=== PATIENT | male | born 1995 | race American Indian/Alaskan Native ===

== ENCOUNTER 2019-06-11 15:44 | Emergency (ER) | payer OTHER ==
[~2019-06-11] VITALS: Ht 167.6 cm; Wt 79.5 kg
[2019-06-11] MEDS ORDERED: NS 1,000 ML IV ONE (16:15)
[2019-06-11 16:26] LABS: BASO % 0.2 % (0.0-1.0); EOS # 0.1 10^3/uL (0.0-0.5); EOS % 0.8 % (0.0-3.0); HEMATOCRIT 42.4 % (42.0-52.0); HEMOGLOBIN 14.8 g/dl (13.5-17.5); LYMPH % 45.5 % (24.0-44.0); MEAN CORPUSCULAR HGB CONC 34.9 g/dl (32.0-36.5); MEAN CORPUSCULAR VOLUME 83.1 fl (80.0-96.0); MONO # 0.3 10^3/uL (0.0-0.8); MONO % 4.5 % (0.0-5.0); NEUTROPHILS # 3.2 10^3/uL (1.5-8.5); NEUTROPHILS % 48.7 % (36.0-66.0); PLATELET COUNT, AUTOMATED 228 10^3/uL (150-450); WHITE BLOOD COUNT 6.6 10^3/uL (4.0-10.0)
[2019-06-11 16:53] LABS: ALBUMIN 4.4 GM/DL (3.2-5.2); BILIRUBIN,DIRECT 0.1 MG/DL (0.0-0.2); BILIRUBIN,TOTAL 0.5 MG/DL (0.2-1.0); TOTAL PROTEIN 7.8 GM/DL (6.4-8.2)
--- NOTE | 2019-06-11 18:54 | REPVR ---
PROCEDURE INFORMATION: Exam: US Abdomen Limited, Right Upper Quadrant Exam date and time: 06/11/2019 6:16 PM Age: 23 years old Clinical indication: Abdominal pain; Localized; Right upper quadrant (ruq); Additional info: Ruq pain TECHNIQUE: Imaging protocol: Real-time ultrasound of the abdomen with image documentation. Examination was focused on the right upper quadrant. COMPARISON: No relevant prior studies available. FINDINGS: Liver: There is moderate fatty infiltration of the liver but no evidence of intrahepatic biliary dilatation Gallbladder: There is a small amount of sludge in the gallbladder but no evidence of stones. The gallbladder wall measures 2 mm. Common bile duct: Common bile duct measures 3 mm with no evidence of dilatation. Pancreas: The pancreas is completely obscured by bowel gas and cannot be evaluated Right kidney: The right kidney measures 10 cm in length by 3.5 cm in thickness and there is no evidence of hydronephrosis. Inferior vena cava: Normal appearing inferior vena cava. IMPRESSION: 1. Moderate fatty infiltration of the liver. 2. No evidence of gallstones. Electronically signed by: Mariano Wilhelm On 06/11/2019 18:54:13 PM
[2019-06-11] MEDS ORDERED: METAL LOCK LOOP XX ONE (19:29)
[2019-06-11 19:31] VITALS: BP 127/76
== END 2019-06-11 19:33 | disposition home or self-care (01) ==
LOC: M ED 15:44
DX: R10.11 Right upper quadrant pain (principal); K76.0 Fatty (change of) liver, not elsewhere classified; F17.200 Nicotine dependence, unspecified, uncomplicated